=== PATIENT | female | born 1980 | race Caucasian/White ===

== ENCOUNTER 2024-02-25 22:07 | Inpatient (IN) | payer OTHER ==
[2024-02-26] MEDS: ELECTROLYTE-148 SOLN 500 ML IV ONE (00:25)
[2024-02-26 00:43] VITALS: BMI 41.9
[2024-02-26] MEDS: ELECTROLYTE-148 SOLN 1,000 ML IV SCH (01:00)
[2024-02-26 01:25] LABS: BASO % 0.4 % (0-2.0); HEMATOCRIT 35.9 % (32.4-45.2); HEMOGLOBIN 11.9 GM/dL (10.7-15.3); LYMPH % 30.8 % (8-40); MCH 27.8 pg (25.7-33.7); MCHC 33.2 g/dl (32.0-36.0); MEAN CELL VOLUME 83.9 fl (80-96); MEAN PLT VOLUME 8.1 fl (7.5-11.1); MONO % 9.9 % (3.8-10.2); NEUT % 57.9 % (42.8-82.8); PLATELET COUNT 157 10^3/uL (134-434); RBC 4.28 M/mm3 (3.60-5.2); RDW 16.8 % (11.6-15.6)
[2024-02-26 01:46] LABS: POTASSIUM 4.5 mmol/L (3.5-5.1)
[2024-02-26 01:47] LABS: CALCIUM 8.4 mg/dL (8.5-10.1)
[2024-02-26 01:51] LABS: CREATININE 0.8 mg/dL (0.55-1.3); INR 0.84 (0.83-1.09); PROTHROMBIN TIME (PATIENT) 9.7 SEC (9.7-13.0)
[2024-02-26 02:43] LABS: HIV INTERPRETATION NEGATIVE (NEGATIVE)
[2024-02-26] MEDS ORDERED: ELECTROLYTE-148 SOLN 1,000 ML IV SCH (05:15)
[2024-02-26] MEDS: CITRIC ACID/SODIUM CITRATE 30 ML UNIT-DOSE CUP PO ONE (05:30)
[2024-02-26] MEDS ORDERED: morphine SULFATE/PF 1 MG/2 ML (2cc Syringe - QUVA) ONE (05:53)
[2024-02-26] MEDS ORDERED: FENTANYL CITRATE/PF 50 MCG/ML VIAL ONE (05:54)
[2024-02-26] MEDS ORDERED: ONDANSETRON 4 MG/2 ML VIAL ONE (06:21)
[2024-02-26] MEDS ORDERED: KETOROLAC TROMETHAMINE 30 MG/1 ML VIAL ONE (06:21)
[2024-02-26] MEDS ORDERED: DEXAMETHASONE SOD PHOSPHATE 4 MG/1 ML VIAL ONE (06:21)
[2024-02-26] MEDS ORDERED: PHENYLEPHRINE HCL 10 MG/1 ML SINGLE DOSE VIAL ONE (06:21)
[2024-02-26] MEDS ORDERED: METOCLOPRAMIDE HCL INJECTION 10 MG/2 ML VIAL ONE (06:21)
[2024-02-26] MEDS ORDERED: ceFAZolin SODIUM 1 GM VIAL ONE (06:21)
[2024-02-26] MEDS ORDERED: OXYTOCIN 10 UNITS/ML VIAL ONE (06:21)
[2024-02-26] MEDS ORDERED: ONDANSETRON 4 MG/2 ML VIAL IVPB PRN (08:17)
[2024-02-26] MEDS ORDERED: ACETAMINOPHEN 1000 MG/100 ML BAG IVPB PRN (08:17)
[2024-02-26] MEDS ORDERED: IBUPROFEN 800 MG/8 ML IJ IVPB PRN (08:17)
[2024-02-26] MEDS: OXYTOCIN 20 UNITS in 0.9% NS 20 UNIT/1,000 ML INFUS.BAG IV SCH (09:00)
[2024-02-26] MEDS ORDERED: OXYTOCIN 20 UNITS in 0.9% NS 20 UNIT/1,000 ML INFUS.BAG IV ONE (09:03)
[2024-02-26 09:51] LABS: POC NITRAZINE POS
[2024-02-26] MEDS: oxyCODONE HCL 5 MG TABLET PO PRN (20:03)
[2024-02-27] MEDS: SENNOSIDES/DOCUSATE COMBO (SENNA PLUS) TABLET (UD) PO SCH (01:18)
[2024-02-27] MEDS ORDERED: BISACODYL 10 MG SUPP.RECT RC PRN (08:17)
[2024-02-27 09:18] LABS: BASO % 0.2 % (0-2.0); EOS % 0.3 % (0-4.5); HEMATOCRIT 34.2 % (32.4-45.2); LYMPH % 22.3 % (8-40); MCH 27.8 pg (25.7-33.7); MCHC 32.2 g/dl (32.0-36.0); MEAN CELL VOLUME 86.4 fl (80-96); MEAN PLT VOLUME 8.7 fl (7.5-11.1); MONO % 6.9 % (3.8-10.2); NEUT % 70.3 % (42.8-82.8); PLATELET COUNT 155 10^3/uL (134-434); RBC 3.96 M/mm3 (3.60-5.2); RDW 16.8 % (11.6-15.6); WHITE BLOOD COUNT 11.1 K/mm3 (4.0-10.0)
[2024-02-27] MEDS: IBUPROFEN 600 MG TABLET (FP) PO PRN (09:36)
[2024-02-27] MEDS: SIMETHICONE 80 MG TAB.CHEW (FP) PO PRN (18:47)
[2024-02-29] MEDS: ACETAMINOPHEN 325 MG TABLET (FP) PO PRN (08:43)
[2024-02-29 12:37] VITALS: BP 120/78; PULSE 76; RESP 18; TEMP 98.8
== END 2024-02-29 14:30 | disposition home or self-care (01) | DRG 540 ==
LOC: JDEL 22:07 → JLDR 23:15 → J3W 02-26 09:40
PROVIDERS: ADMIT Specialist; ATTEND Specialist
PROC: 10D00Z1 Extraction of Products of Conception, Low, Open Approach (ICD-10-PCS; principal; 2024-02-26)
PROC: 0UB70ZZ Excision of Bilateral Fallopian Tubes, Open Approach (ICD-10-PCS; 2024-02-26)
PROC: 0DNU0ZZ Release Omentum, Open Approach (ICD-10-PCS; 2024-02-26)
DX: O34.211 Maternal care for low transverse scar from previous cesarean delivery (principal); N85.8 Other specified noninflammatory disorders of uterus; O99.214 Obesity complicating childbirth; O42.92 Full-term premature rupture of membranes, unspecified as to length of time between rupture and onset of labor; O24.429 Gestational diabetes mellitus in childbirth, unspecified control; Z3A.38 38 weeks gestation of pregnancy; K66.0 Peritoneal adhesions (postprocedural) (postinfection); Z30.2 Encounter for sterilization; Z37.0 Single live birth
CPT/HCPCS: 36415; 59409; 80048; 83986-QW; 85025; 85610; 85730; 86780; 86922; 87389; 88302-TC; 88304-TC; 88307-TC